=== PATIENT | female | born 1980 | race Caucasian/White ===

== ENCOUNTER 2019-11-24 11:14 | Day surgery (SDC) | payer BC ==
[2019-11-24] MEDS ORDERED: LIDOCAINE HCL 2% 100 MG/5 ML IJ ONE (11:15)
[2019-11-24] MEDS ORDERED: Depo-Medrol 40 MG/ML IM ONE (11:15)
[2019-11-24] MEDS ORDERED: DIPRIVAN 200 MG/20 ML IV ONE (12:16)
[2019-11-24] MEDS ORDERED: Ketamine HCl 50 MG/ML ONE (12:16)
--- NOTE | 2019-11-24 13:51 | XRAY ---
Indication: Bilateral L3-S1 MBB. Intraoperative fluoroscopy was provided for 7 seconds. Single digital spot image submitted for interpretation demonstrates posterior needle tips projecting over the expected course of the left and right L3-S1 nerve roots. Correlate with intraoperative findings/report.
--- NOTE | 2019-11-24 13:53 | XRAY ---
7 seconds fluoroscopy time in surgery for bilateral L3-S1 MBB.
[2019-11-24] MEDS ORDERED: Lactated Ringers 1,000 ML IV ONE (15:50)
== END 2019-11-24 12:45 | disposition home or self-care (01) ==
LOC: SDC-PAIN 11:14
PROVIDERS: ATTEND Psychiatry & Neurology Pain Medicine
DX: M47.816 Spondylosis without myelopathy or radiculopathy, lumbar region (principal); J44.9 Chronic obstructive pulmonary disease, unspecified; G35 Multiple sclerosis; F41.8 Other specified anxiety disorders; K21.9 Gastro-esophageal reflux disease without esophagitis; Z79.899 Other long term (current) drug therapy
CPT/HCPCS: 64493; 64494; 64495; 72020; 77002; 84703; J1030; J2704